=== PATIENT | female | born 1970 | race Caucasian/White ===

== ENCOUNTER 2018-04-12 01:10 | Emergency (ER) | payer OTHER ==
[~2018-04-12] VITALS: Ht 162.6 cm; Wt 68.0 kg
[2018-04-12 01:12] VITALS: Ht 162.6 cm; Wt 68.0 kg
[2018-04-12 04:49] VITALS: BP 121/73
== END 2018-04-12 04:49 | disposition home or self-care (01) ==
LOC: ED 01:10
DX: S53.401A Unspecified sprain of right elbow, initial encounter (principal); S43.401A Unspecified sprain of right shoulder joint, initial encounter; W18.39XA Other fall on same level, initial encounter; Y93.E1 Activity, personal bathing and showering; Y92.091 Bathroom in other non-institutional residence as the place of occurrence of the external cause; Y99.8 Other external cause status
CPT/HCPCS: J1885; J3010; Q0162